=== PATIENT | male | born 1980 | race Caucasian/White ===

== ENCOUNTER 2016-10-25 04:24 | Emergency (ER) | payer OTHER, BC ==
[~2016-10-25] VITALS: Ht 190.5 cm; Wt 145.1 kg
[2016-10-25 05:04] VITALS: BP 129/86
== END 2016-10-25 06:36 | disposition home or self-care (01) ==
LOC: ER 04:24
DX: G56.01 Carpal tunnel syndrome, right upper limb (principal)
CPT/HCPCS: 73110; 73130

== ENCOUNTER 2019-10-26 04:30 | Emergency (ER) | payer BC, OTHER ==
[~2019-10-26] VITALS: Ht 190.5 cm; Wt 158.8 kg
[2019-10-26 04:49] VITALS: BP_DIAS 88
[2019-10-26 06:21] LABS: Basophils # (auto) 0 10 ^3/uL (0-0.2); Basophils % (auto) 0.4 % (0.0-2.0); Eosinophils # (auto) 0.2 10 ^3/uL (0-0.8); Eosinophils % (auto) 3.1 % (0.0-7.0); Hematocrit 41.2 % (41.0-53.0); Lymphocytes # (auto) 1.8 10 ^3/uL (0.4-5.4); Lymphocytes % (auto) 26.5 % (10.0-50.0); Mean Corpuscular Hemoglobin 28.2 pg (28.0-32.0); Mean Corpuscular Volume 82.9 fL (80.0-100.0); Monocytes # (auto) 0.7 10 ^3/uL (0-1.3); Monocytes % (auto) 10.4 % (0.0-12.0); Neutrophils % (auto) 59.6 % (37.0-80.0); Nucleated Red Blood Cells % 0.1 %; Platelet Count (auto) 242 10^3/uL (140-450); Red Blood Cells 4.96 10^6/uL (4.5-5.90); Red Cell Distribution Width 14.5 % (11.8-14.3); White Blood Cell 6.7 10^3/uL (4.4-10.8)
[2019-10-26 06:32] VITALS: BP_SYST 128
[2019-10-26 06:39] LABS: INR 1.07 (0.9-1.15); Partial Thromboplastin Time 34.6 sec (23.64-32.05)
[2019-10-26 06:40] LABS: Albumin 3.5 g/dL (3.4-5.0); Anion Gap 6 (5-15); Blood Urea Nitrogen 16 mg/dL (7-18); Calcium 8.3 mg/dL (8.5-10.1); Carbon Dioxide 25 mmol/L (21-32); Chloride 106 mmol/L (98-107); Glucose 134 mg/dL (74-106); Magnesium 2.5 mg/dL (1.6-2.6); Potassium 4.1 mmol/L (3.5-5.1); Sodium 137 mmol/L (136-145)
[2019-10-26 06:40] LABS: Urine Bacteria FEW /hpf (None Seen); Urine Blood Negative /uL (Negative); Urine Mucus FEW (None Seen); Urine Specific Gravity 1.016 (1.001-1.035); Urine WBC 1 /hpf (0 - 3)
[2019-10-26 06:47] LABS: Alanine Aminotransferase 69 U/L (16-61); Alkaline Phosphatase 105 U/L (45-117); Aspartate Aminotransferase 26 U/L (15-37); Bilirubin, Total 0.3 mg/dL (0.2-1.0); GFR African American 130 mL/min; GFR Non-African American 108 mL/min; Total Protein 8.1 g/dL (6.4-8.2)
== END 2019-10-26 07:19 | disposition home or self-care (01) ==
LOC: ER 04:30
DX: R06.02 Shortness of breath (principal); J40 Bronchitis, not specified as acute or chronic; Z20.828 Contact with and (suspected) exposure to other viral communicable diseases
CPT/HCPCS: 36415; 71045; 80053; 81001; 82728; 83605; 83735; 83880; 84484; 85025; 85379; 85610; 85730; 87070; 87804; 87880; 99284; U0003

== ENCOUNTER 2020-06-16 13:26 | Emergency (ER) | payer OTHER ==
[~2020-06-16] VITALS: Ht 190.5 cm; Wt 158.8 kg
[2020-06-16 14:14] VITALS: BP 152/85
[2020-06-16] MEDS ORDERED: KETOROLAC TROMETH 60MG/2ML VIAL IM ONE (14:30)
== END 2020-06-16 15:46 | disposition home or self-care (01) ==
LOC: ER 13:26
DX: S46.912A Strain of unspecified muscle, fascia and tendon at shoulder and upper arm level, left arm, initial encounter (principal); S16.1XXA Strain of muscle, fascia and tendon at neck level, initial encounter; S70.12XA Contusion of left thigh, initial encounter; Z88.0 Allergy status to penicillin; W11.XXXA Fall on and from ladder, initial encounter; Y93.89 Activity, other specified; Y92.69 Other specified industrial and construction area as the place of occurrence of the external cause; Y99.8 Other external cause status
CPT/HCPCS: 73030; 73552; 96372; 99284; J1885

== ENCOUNTER 2021-03-22 11:02 | Emergency (ER) | payer OTHER ==
[~2021-03-22] VITALS: Ht 190.5 cm; Wt 152.4 kg
[2021-03-22 15:04] VITALS: BP 143/82
== END 2021-03-22 17:07 | disposition home or self-care (01) ==
LOC: ER 11:02
DX: J18.9 Pneumonia, unspecified organism (principal); Z20.822 Contact with and (suspected) exposure to COVID-19
CPT/HCPCS: 36415; 71046; 87426